=== PATIENT | female | born 2000 | race Two or more races ===

== ENCOUNTER 2023-06-14 19:42 | Emergency (ER) | payer SELFPAY ==
[2023-06-14 19:46] VITALS: BP 125/83; PULSE 84; RESP 18; TEMP 36.9; O2SAT 98; BMI 38.7
--- NOTE | 2023-06-14 19:52 | PC.NURSE ---
OD 09/17 OS 09/22 OY 09/17
--- NOTE | 2023-06-14 20:08 | PC.NURSE ---
Er at bedside with MIKALA pen and drops for eye
--- NOTE | 2023-06-14 20:15 | PC.NURSE ---
called [facility] pharmacy to have med pushed over
--- NOTE | 2023-06-14 20:29 | PC.NURSE ---
Revised VA OS 20/50 OD 20/60 OU 20/50 with glasses
--- NOTE | 2023-06-14 20:49 | ED_ITS ---
HPI - Eye Problem General Chief complaint: Eye Problems Stated complaint: RT EYE SWELLING Time Seen by Provider: 06/14/23 19:53 Source: patient Mode of arrival: walk-in Limitations: no limitations History of Present Illness HPI Narrative: patient wears contacts. States she stop wearing them to bed about one month ago. Removed contact 2 nights ago before going to bed because right eye discomfort. The following AM(yesterday) woke up with the eye crusted together and red. Seen at urgent care and prescribed erythromycin ointment. Presents now because the eye is more red. Has occ sharp pain of the eye. Vision is blurry. No photosensitivity. No associated headache. MD chief complaint: Reports eye redness Related Data Home Medications Medication Instructions Recorded Confirmed Unobtainable 06/14/23 06/14/23 Allergies Allergy/AdvReac Type Severity Reaction Status Date / Time No Known Drug Allergies Allergy Verified 06/14/23 19:51 Review of Systems ROS Status of ROS 10 or more systems reviewed and unremarkable except as noted in history and below [facility] Social History Smoking status: Never smoker Exam Constitutional Vital Signs, click to edit/add: Last Vital Signs Temp 98.4 F 06/14/23 19:46 Pulse 84 06/14/23 19:46 Resp 18 06/14/23 19:46 BP 125/83 H 06/14/23 19:46 Pulse Ox 98 06/14/23 19:46 O2 Del Method Room Air 06/14/23 19:46 Common normals: no apparent distress, oriented x3, no limitations, healthy appearing, alert and well nourished [facility] Common normals: normocephalic, head/scalp atraumatic and hearing grossly normal bilaterally Eye Common normals: PERRL and EOMs intact bilaterally Other: right eye inflamed/injected. No ulcer appreciated. No palpebral swelling. VA 20/60 OD with glasses and 20/50 left eye with glasses. 20/50 OU. Respiratory Common normals: normal respiratory effort, no retractions and no use of accessory muscles Cardio Common normals: regular rate, regular rhythm, S1 normal heart sound and S2 normal heart sound Extremity Common normals: normal to inspection, full ROM and no joint enlargement Neuro Common normals: oriented x3, CN's II-XII intact bilaterally, moves all extremities and no focal motor deficits Psych Appearance: grossly normal Course Vital Signs Vital signs: Vital Signs Temperature 98.4 F 06/14/23 19:46 Pulse Rate 84 06/14/23 19:46 Respiratory Rate 18 06/14/23 19:46 Blood Pressure 125/83 H 06/14/23 19:46 Pulse Oximetry 98 06/14/23 19:46 Oxygen Delivery Method Room Air 06/14/23 19:46 Temperature 98.4 F 06/14/23 19:46 Pulse Rate 84 06/14/23 19:46 Respiratory Rate 18 06/14/23 19:46 Blood Pressure 125/83 H 06/14/23 19:46 Pulse Oximetry 98 06/14/23 19:46 Oxygen Delivery Method Room Air 06/14/23 19:46 MDM - Eye Problem MDM Narrative Medical decision making narrative: patient presents with right eye injected. she does wear contacts. started on e. mycin ophthalmic ointment per urgent care yesterday. Increased redness today and this is why she came in. AG pen measurement right eye were elevated at 56 and then 88.replaced cover on Tonopen and Repeated measurement again and result was 24. VA with glasses 20/60 right eye and 20/50 left eye. VA OU 20/50. Discussed with environment friendly landscape designer secondary set up man at [facility] and he recommended changing antibiotic. He felt she may have contact lens syndrome. Did not feel Ag Pen results were reliable. Patient informed of the plan to change antibiotic and the need for close follow up. Recommend she have her eye rechecked tomorrow Discharge Plan Discharge Chief Complaint: Eye Problems Clinical Impression: Contact lens overwear, Bacterial conjunctivitis Patient Disposition: Home, Self-Care Mode of Transportation: Private Vehicle Prescriptions / Home Meds: No Action Unobtainable Instructions: Conjunctivitis (ED) Additional Instructions: Ofloxacin drops: 2 drops right eye every 4 hours. Ketorolac eye drop: 1 drop 3 times a day if needed for pain Have eye rechecked tomorrow / call your eye DR Stop Current eye antibiotic Stand Alone Forms: Portal Instructions Referrals: YESICA ALCANTAR [Primary Care Provider] - 1 week Discharge Date/Time: 06/14/23 21:32
--- NOTE | 2023-06-14 21:12 | PC.NURSE ---
[facility] called to have meds pushed over
[2023-06-14] MEDS: KETOROLAC TROMETHAMINE 0.5% OP SOL 100 DROP/5 ML BOTTLE OP (21:27)
--- NOTE | 2023-06-14 21:30 | PC.NURSE ---
d/c instructions complete, pt verbalized understanding. eye drops for home with pt at time of d/c and instructed pt to call her eye DR tomorrow to see if any of her eye Dr's have a emergency # to call on the wknds. told to return for any problems or concerns. gait steady to exit
== END 2023-06-14 21:32 | disposition home or self-care (01) ==
PROVIDERS: Emergency Provider Internal Medicine; PCP Family Medicine
DX: H10.9 Unspecified conjunctivitis (principal)
CPT/HCPCS: 99282